=== PATIENT | female | born 1930 | race Caucasian/White ===

== ENCOUNTER 2017-11-28 06:59 | Emergency (ER) | payer MEDICARE, BC ==
[2017-11-28] MEDS: GLUCAGON FOR INJ 1 MG VIAL (J1610) IV (07:15)
[2017-11-28] MEDS: GI COCKTAIL 50ML BTL(HYOSCYAMINE/MAALOX/LIDOCAINE VISCOUS)(1:3:1) PO (07:30)
== END 2017-11-28 08:22 | disposition home or self-care (01) ==
LOC: M ED 06:59
DX: T18.108A Unspecified foreign body in esophagus causing other injury, initial encounter (principal); Y92.9 Unspecified place or not applicable; Y93.9 Activity, unspecified; E11.9 Type 2 diabetes mellitus without complications; Z86.2 Personal history of diseases of the blood and blood-forming organs and certain disorders involving the immune mechanism; Z79.899 Other long term (current) drug therapy; Z88.1 Allergy status to other antibiotic agents; Z88.8 Allergy status to other drugs, medicaments and biological substances
CPT/HCPCS: 93005

== ENCOUNTER → 2020-05-15 | Outpatient (CLI) | payer SELFPAY ==
[~2020-05-15] MED LIST: PROT1TAB2
== END ==
LOC: M LABSMTC 15:37
PROVIDERS: ATTEND Pediatrics
DX: Z11.59 Encounter for screening for other viral diseases (principal)

== ENCOUNTER 2020-10-26 18:31 | Observation (INO) | payer MEDICARE ==
[~2020-10-26] VITALS: Ht 149.9 cm; Wt 55.3 kg
[2020-10-26 20:01] LABS: BASO # 0.1 10^3/uL (0.0-0.2); BASO % 0.4 % (0.0-1.0); EOS # 0.1 10^3/uL (0.0-0.5); EOS % 0.8 % (0.0-3.0); HEMATOCRIT 36.8 % (36.0-47.0); HEMOGLOBIN 11.8 g/dl (12.0-15.5); LYMPH # 1.5 10^3/uL (1.5-5.0); LYMPH % 11.9 % (24.0-44.0); MEAN CORPUSCULAR HEMOGLOBIN 26.8 pg (27.0-33.0); MEAN CORPUSCULAR HGB CONC 32.1 g/dl (32.0-36.5); MEAN CORPUSCULAR VOLUME 83.6 fl (80.0-96.0); MONO # 1.1 10^3/uL (0.0-0.8); MONO % 9.1 % (2.0-8.0); NEUTROPHILS # 9.6 10^3/uL (1.5-8.5); NEUTROPHILS % 77.5 % (36.0-66.0); PLATELET COUNT, AUTOMATED 397 10^3/uL (150-450); WHITE BLOOD COUNT 12.4 10^3/uL (4.0-10.0)
[2020-10-26 20:27] LABS: ALBUMIN 3.6 GM/DL (3.2-5.2); ALT/SGPT 18 U/L (12-78); BILIRUBIN,DIRECT < 0.1 MG/DL (0.0-0.2); BILIRUBIN,TOTAL 0.3 MG/DL (0.2-1.0); BLOOD UREA NITROGEN 17 MG/DL (7-18); CALCIUM LEVEL 9.3 MG/DL (8.8-10.2); CARBON DIOXIDE LEVEL 31 MEQ/L (21-32); CHLORIDE LEVEL 101 MEQ/L (98-107); CREATININE FOR GFR 0.95 MG/DL (0.55-1.30); GLOMERULAR FILTRATION RATE 59.1 (>32); GLUCOSE, FASTING 133 MG/DL (70-100); LIPASE 81 U/L (73-393); POTASSIUM SERUM 3.8 MEQ/L (3.5-5.1); SODIUM LEVEL 137 MEQ/L (136-145); TOTAL PROTEIN 8.1 GM/DL (6.4-8.2)
--- NOTE | 2020-10-26 20:44 | ECGEPIP ---
[facility] - ED Test Date: 2020-10-26 Pat Name: JOSHUA CASTILLO Department: Room: - Gender: Female Residential Real Estate Appraiser: MICHA : 1930 Requested By: SELIN HARVEY Order Number: [id number] Reading MD: Julianne Jones Measurements Intervals [place] Rate: 93 P: 58 NE: 158 QRS: -11 QRSD: 68 T: 33 QT: 378 QTc: 469 Interpretive Statements Normal sinus rhythm similar 11/28/17 Electronically Signed on 10-26-2020 20:44:31 EDT by Julianne Jones
--- NOTE | 2020-10-26 21:28 | REPVR ---
PROCEDURE INFORMATION: Exam: XR Abdomen Exam date and time: 10/26/2020 8:37 PM Age: 89 years old Clinical indication: Abdominal pain; Additional info: Examine gas pattern / adbominal distention TECHNIQUE: Imaging protocol: XR of the abdomen. Views: 2 Views. Upright and supine views. COMPARISON: No relevant prior studies available. FINDINGS: Gastrointestinal tract: Moderate colonic fecal load. Intraperitoneal space: Normal. No free air. Bones/joints: Degenerative changes of the spine and bilateral hip joints. IMPRESSION: Moderate colonic fecal load. Clinical correlation with constipation. Electronically signed by: Daryl Delgado On 10/26/2020 21:27:49 PM
[2020-10-26] MEDS ORDERED: NS 1,000 ML IV SCH (22:55)
[2020-10-26] MEDS ORDERED: GASTROGRAFIN SOLUTION 30ML (Q9963) As Ordered ONE (23:06)
[2020-10-26] MEDS: GASTROGRAFIN SOLUTION 30ML PO SCH ×2 (23:18→23:42)
[2020-10-27] MEDS ORDERED: NS 1,000 ML IV ONE (00:10)
[2020-10-27] MEDS ORDERED: ISOVUE-370 76% 100ML VIAL As Ordered ONE (00:27)
--- NOTE | 2020-10-27 01:27 | REPVR ---
PROCEDURE INFORMATION: Exam: CT Abdomen And Pelvis With Contrast Exam date and time: 10/26/2020 10:53 PM Age: 89 years old Clinical indication: Abdominal pain; Generalized; Additional info: R/O diverticulitis TECHNIQUE: Imaging protocol: Computed tomography of the abdomen and pelvis with contrast. Radiation optimization: All CT scans at this facility use at least one of these dose optimization techniques: automated exposure control; mA and/or kV adjustment per patient size (includes targeted exams where dose is matched to clinical indication); or iterative reconstruction. Contrast material: ISO; Contrast volume: 100 ml; Contrast route: INTRAVENOUS (IV); Other contrast: Oral, ggraphin, 600; COMPARISON: CR Abdomen, Flat-Upright PA CHEST 10/26/2020 8:24 PM FINDINGS: Lungs: There is atelectasis in both lower lobes. The lungs were not fully imaged. Heart: The heart is enlarged. There are extensive mitral annular calcifications. Mediastinal space: There is a large hiatal hernia. Liver: The attenuation of the liver is more than 40 Hounsfield units lower in attenuation compared to the spleen, which is compatible with fatty liver infiltration. No liver lesion. The contour of the liver is smooth. No hepatomegaly. Gallbladder and bile ducts: There has been a cholecystectomy. There is no fluid collection in the gallbladder fossa. No dilation of the bile ducts is noted. No calcified stones are seen in the common bile duct. Pancreas: Normal. No dilation of the main pancreatic duct is noted. Spleen: Normal. No splenomegaly is noted. Adrenal glands: Normal. No adrenal mass is noted. Kidneys and ureters: The kidneys are normal in appearance. No renal lesion is identified. No calculi are seen in the kidneys or ureters. There is no hydronephrosis or hydroureter. There are no wedge-shaped areas of low attenuation in the kidneys to suggest pyelonephritis. There is no renal abscess or perinephric fluid collection. Stomach and bowel: There is thickening of the wall of the gastric antrum. The small bowel is unremarkable. There is severe sigmoid diverticulosis, thickening of the wall of the sigmoid colon, and inflammatory fat stranding around a sigmoid diverticulum in the right side of the pelvis, which are findings compatible with sigmoid diverticulitis. No bowel obstruction or extraluminal extravasation of ingested contrast material is noted. Appendix: The appendix is not identified and may have been removed. No dilated blind ending tubular structure, inflammatory fat stranding, or fluid is noted in the expected location of the appendix. Intraperitoneal space: No free air. No ascites. No abscess. Retroperitoneal space: No fluid collection. No mass. Vasculature: No abdominal aortic aneurysm. There are extensive atherosclerotic calcifications. No occlusion of the celiac artery, superior mesenteric artery, inferior mesenteric artery, renal arteries, or iliac arteries is noted. Lymph nodes: No enlarged lymph nodes. Urinary bladder: There is a small calcification in the anterior wall of the bladder (image 100 of the axial series 201). Reproductive: There has been a hysterectomy. There is a 15 mm nodule along the right side of the vaginal cuff (image 48 of the sagittal series 203 and image 103 of the axial series 201). Bones/joints: There is no fracture or dislocation. No suspicious osteolytic or osteoblastic lesion. There are degenerative changes involving the lumbar spine and a mild levoscoliosis of the lumbar spine. Soft tissues: There is a small fat containing umbilical hernia. IMPRESSION: 1. Sigmoid diverticulitis. 2. Thickening of the wall of the gastric antrum, which may indicate gastritis. 3. Status post hysterectomy, and there is a 15 mm nodule along the right side of the vaginal cuff. 4. Large hiatal hernia. 5. Small fat containing umbilical hernia. 6. Cardiomegaly. Electronically signed by: Bryce Young On 10/27/2020 01:27:07 AM
[2020-10-27] MEDS ORDERED: metroNIDAZOLE 500 MG in IV 1 EA IV ONE (01:40)
[2020-10-27] MEDS ORDERED: MORPHINE 4 MG/ML 1ML VIAL/SYRINGE (J2270) IV ONE (01:40)
[2020-10-27] MEDS ORDERED: CIPROFLOXACIN 400 MG in IV 1 EA IV ONE (01:40)
--- NOTE | 2020-10-27 03:37 | IPNPDOC ---
Text Note Date of Service The patient was seen on 10/27/20. NOTE time of service 356 am is an 89 yr old w diverticulitis who presented w c/o abdominal pain w/o bloody stools likely 2/[address] scan; based on admission criteria on an UpToDate article on diverticulitis she was admitted bc of her age; gastritis is likely due to NSAID use; started PPIs if Hg keeps trending down consider GI consult for EGD rest per 's H&P VS,Fishbone, I+O VS, Fishbone, I+O Laboratory Tests 10/26/20 19:37 Vital Signs Date Time Temp Pulse Resp B/P (MAP) Pulse Ox O2 Delivery O2 Flow Rate FiO2 10/27/20 02:31 90 18 151/77 (101) 98 Room Air 10/27/20 01:46 98.7 I&O- Last 24 Hours up to 6 AM 10/27/20 06:00 Intake Total 1100 ml Balance 1100 ml NOEL SORENSON MD October 27, 2020 03:37
[2020-10-27] MEDS ORDERED: PROT20TA11 PO (03:55)
[2020-10-27] MEDS ORDERED: ONDANSETRON 4MG/2ML VIAL IV ONE (04:25)
[2020-10-27 04:44] LABS: RSV AMPLIFICATION NEGATIVE (NEGATIVE)
[2020-10-27] MEDS ORDERED: MOM 30ML SUSPENSION UDC PO PRN (04:50)
[2020-10-27] MEDS ORDERED: ACETAMINOPHEN TAB 650MG DOSE (2X325MG) PO PRN (04:50)
[2020-10-27] MEDS ORDERED: MAALOX 30 ML SUSP *UDC PO PRN (04:50)
[2020-10-27] MEDS ORDERED: NS 1,000 ML IV SCH (04:55)
--- NOTE | 2020-10-27 05:06 | HPEPDOC ---
[facility] Medical History & Physical Date of Admission October 27, 2020 Date of Service: October 27, 2020 Attending Physician: NOEL SORENSON MD History and Physical CHIEF COMPLAINT: Abdominal pain and distention HISTORY OF PRESENT ILLNESS: Patient is a pleasant 89-year-old female with a history of diverticulitis and lactose intolerance who presented to the ED with abdominal distention and severe cramping abdominal pain 7 out of 10 in intensity, sharp with no aggravating or relieving factors 3 days ago. Patient has not tried any medication for pain and does not believe in taking too many medications. Patient states there couldn't have been anything that instigated this event because she did nothing different than usual. Patient has had no bowel habit changes is fairly regular, goes twice a day, has a well-formed stools with no blood in the stools. No diarrhea constipation, vomiting, fevers, chills, headaches, shortness of breath, weakness, chest pain, cough, dizziness. Patient was found to have normal vitals but a positive urinalysis for infection and a CT abdomen showing sigmoid diverticulitis. So, the patient was kept nothing by mouth and was treated with a bolus of normal saline and IV Rocephin and IV metronidazole and admitted for further recommendations and treatment. PAST MEDICAL HISTORY: 1. Diverticulitis. 2. Lactose intolerance. PAST SURGICAL HISTORY: 1. Hysterectomy 2. Cholecystectomy. 3. Possible appendectomy as per CT. Patient unaware SOCIAL HISTORY: Tobacco use: Never smoker ETOH: Never Illicit drug use: Never FAMILY HISTORY: Father: Diverticulitis Hereditary disease: None ALLERGIES: Please see below. REVIEW OF SYSTEMS: General: Reports: Normal Appetite; Denies: Fatigue, Malaise Constitutional: Denies: Fever, Chills, Sweats, Weakness, Malaise Eyes: Denies: Pain, Vision change ENT: Denies: Head Aches, Sore Throat, Epistaxis Skin: Denies: Rash, Lesions, Breakdown, Nail Changes Pulmonary: Denies: Dyspnea, Cough Cardiovascular: Denies Chest Pain, Denies Palpitations Gastrointestinal: Denies: diarrhea,constipation Genitourinary: Denies: Dysuria, Frequency, Incontinence, Hematuria Hematologic: Denies: Bruising, Bleeding Excessively Endocrine: Denies: Polydipsia, Polyphagia, Polyuria Musculoskeletal: Denies: Neck Pain, Back Pain Neurological: Denies: Weakness, Numbness, Incoordination, Change in Speech Psych: Reports: Mood Normal; Denies: Anxiety, Depression HOME MEDICATIONS: Please see below. PHYSICAL EXAMINATION: GENERAL APPEARANCE: Patient looks alert, cooperative, not in any acute distress. HEENT: Atraumatic, normocephalic, moist mucous membranes, no conjunctival pallor, no scleral icterus, PERRLA, EOMI. CARDIOVASCULAR: S1 and S2 heard, rate and rhythm normal. No murmurs appreciated. LUNGS:. Clear to auscultation bilaterally, no wheezing, rhonchi or crackles heard. ABDOMEN: Nondistended, nontender, no organomegaly, no rashes. EXTREMITIES: No pedal edema, good volume pulses , good capillary refill + NEUROLOGICAL: 5/5 motor strength, sensations intact. PSYCHIATRIC:, Normal mood and affect LABORATORY DATA: See below. IMAGING: CT abdomen and pelvis: shows sigmoid diverticulitis. MICROBIOLOGY: Please see below. ASSESSMENT: Patient is a pleasant 89-year-old female with a history of diverticulitis and lactose intolerance who presented to the ED with abdominal distention and severe cramping abdominal pain 7 out of 10 in intensity, sharp with no aggravating or relieving factors 3 days ago. Patient has not tried any medication for pain and does not believe in taking too many medications. Patient states there couldn't have been anything that instigated this event because she did nothing different than usual. Patient has had no bowel habit changes is fairly regular, goes twice a day, has a well-formed stools with no blood in the stools. No diarrhea constipation, vomiting, fevers, chills, headaches, shortness of breath, weakness, chest pain, cough, dizziness. Patient was found to have normal vitals but a positive urinalysis for infection and a CT abdomen showing sigmoid diverticulitis. So, the patient was kept nothing by mouth and was treated with a bolus of normal saline and IV Rocephin and IV metronidazole and admitted for further recommendations and treatment. . PLAN: 1. Abdominal pain secondary to Sigmoid diverticulitis as per CT versus constipa tion versus pancreatitis versus cystitis : -Patient's CT shows sigmoid diverticulitis. -Patient's abdominal x-ray shows a moderate fecal load. -Patient has abnormal urinalysis. -Blood cultures ordered -Urine cultures ordered -Patient was admitted with continuous monitoring of vitals. -Patient was kept nothing by mouth with every 6 FSBS monitoring. -Patient was given 1 dose of IV Rocephin and IV metronidazole in the ED. -Treatment was continued as IV Zosyn and IV vancomycin for floors as scheduled to treat any abdominal infection. -Surgery needs to be consulted. -A bowel regimen was ordered for the patient to treat constipation. -Appropriate pain control ordered. -Patient's previous colonoscopy was 2 years ago as per the patient done in [place] which showed diverticulosis. -Patient's lipase levels have been ordered. 2. Possible sepsis/SIRS secondary to urinary tract infection or colonic source: -Patient's vitals are stable -patient has leukocytosis of 12.6 -Continuous monitoring of vitals. -CRP is high. -Patient has been started on IV fluids. -Empirically covered with antibiotics. 3.Abnormal CT findings a 15 mm nodule was found on vaginal cuff: -Patient should follow this up outpatient with her PCP or [facility] program coordinator. DVT prophylaxis: Subcutaneous heparin 5000 units every 8 hours. DISPOSITION: Pending improvement. Anticipating 2 hospital days. Vital Signs Vital Signs Date Time Temp Pulse Resp B/P (MAP) Pulse Ox O2 Delivery O2 Flow Rate FiO2 10/27/20 04:01 87 18 165/81 (109) 97 Room Air 10/27/20 01:46 98.7 Laboratory Data Labs 24H Laboratory Tests 2 10/26/20 19:37: Immature Granulocyte % (Auto) 0.3, Neutrophils (%) (Auto) 77.5H, Lymphocytes (%) (Auto) 11.9L, Monocytes (%) (Auto) 9.1H, Eosinophils (%) (Auto) 0.8, Basophils (%) (Auto) 0.4, Neutrophils # (Auto) 9.6H, Lymphocytes # (Auto) 1.5, Monocytes # (Auto) 1.1H, Eosinophils # (Auto) 0.1, Basophils # (Auto) 0.1, Nucleated Red Blood Cells % (auto) 0.0, Urine Color YELLOW, Urine Appearance HAZY, Urine pH 8.0, Urine Specific Hurt 1.004, Urine Protein NEGATIVE, Urine Glucose (UA) NEGATIVE, Urine Ketones NEGATIVE, Urine Blood NEGATIVE, Urine Nitrite NEGATIVE, Urine Bilirubin NEGATIVE, Urine Urobilinogen 0.2, Urine Leukocyte Esterase 3+H, Urine WBC (Auto) 42H, Urine RBC (Auto) 4H, Urine Hyaline Casts (Auto) 0, Urine Bacteria (Auto) 1+H, Urine Squamous Epithelial Cells 1, Urine Sperm (Auto) , Anion Gap 5L, Glomerular Filtration Rate 59.1, Lactic Acid Level 1.0, Calcium Level 9.3, Total Bilirubin 0.3, Direct Bilirubin < 0.1, Aspartate Amino Transf (AST/SGOT) 14, Alanine Aminotransferase (ALT/SGPT) 18, Alkaline Phosphatase 92, C-Reactive Protein, Quantitative 11.20H, Total Protein 8.1, Albumin 3.6, Albumin/Globulin Ratio 0.8L, Lipase 81 10/27/20 03:34: Coronavirus (COVID-19)(PCR) NEGATIVE, Influenza Type A (RT-PCR) NEGATIVE, Influenza Type B (RT-PCR) NEGATIVE, Respiratory Syncytial Virus (PCR) NEGATIVE CBC/BMP Laboratory Tests 10/26/20 19:37 Microbiology Microbiology 10/26/20 Urine Culture, Received Pending Home Medications Scheduled Pantoprazole Sodium (Protonix) 20 Mg Tablet.dr, 20 MG PO DAILY Allergies Coded Allergies: azithromycin (Verified Adverse Reaction, Mild, 10/26/20) NAUSEA diphenhydramine (Verified Adverse Reaction, Mild, 10/26/20) HALLUCINATIONS A-FIB/CHADSVASC A-FIB History Current/History of A-Fib/PAF?: No Current PO Anticoag Therapy: No Age/Risk Factor Scoring CHADSVASC: CHADSVASC Response (Comments) Value Age Risk Factor Age >/= 75 years old 2 Gender Risk Factor Female 1 Hx of CHF No 0 Hx of HTN No 0 Hx of Stroke/TIA/or VTE No 0 Hx of Diabetes No 0 Hx of Vascular Disease No 0 Total 3 Treatment Treatment ordered: NONE Reason Anticoagulant not given: Patient refusal GME ATTESTATION GME ATTESTATION My faculty preceptor for this patient encounter was physically present during the encounter and was fully available. All aspects of the patient interview, examination, medical decision making process, and medical care plan development were reviewed and approved by the faculty preceptor. The faculty preceptor is aware and concurs with the plan as stated in the body of this note and will attest to such by his/her cosignature. ATTENDING NOTE time of service 356 am is an 89 yr old w diverticulitis who presented w c/o abdominal pain w/o bloody stools likely 2/[address] scan; based on admission criteria on an UpToDate article on diverticulitis she was admitted bc of her a ge; gastritis is likely due to NSAID use if Hg keeps trending down consider GI consult for EGD rest per 's H&P Keli Armenta MD October 27, 2020 05:06 NOEL SORENSON MD October 27, 2020 07:28
[2020-10-27 05:40] VITALS: BP 158/69
[2020-10-27] MEDS ORDERED: PIPERACILLIN/TAZOBACTAM SOD 3.375 GM in D5W MINI-BAG PLUS 50 ML IV SCH (06:00)
[2020-10-27] MEDS: HEPARIN SOD (PORCINE) 5000UNITS/ML 1ML VIAL/SYRINGE SC SCH ×3 (06:17→21:58)
[2020-10-27] MEDS ORDERED: GLUCOSE 4GM CHEW TABLET PO PRN (06:50)
[2020-10-27] MEDS ORDERED: DEXTROSE 50% 50 ML SYRINGE IV PRN (06:50)
[2020-10-27] MEDS ORDERED: GLUCAGON INJ 1MG VIAL SC PRN (06:50)
[2020-10-27 06:56] LABS: BASO % 0.3 % (0.0-1.0); EOS # 0.1 10^3/uL (0.0-0.5); EOS % 1.3 % (0.0-3.0); HEMATOCRIT 32.9 % (36.0-47.0); HEMOGLOBIN 10.4 g/dl (12.0-15.5); LYMPH # 1.2 10^3/uL (1.5-5.0); LYMPH % 13.8 % (24.0-44.0); MEAN CORPUSCULAR HEMOGLOBIN 26.3 pg (27.0-33.0); MEAN CORPUSCULAR HGB CONC 31.6 g/dl (32.0-36.5); MEAN CORPUSCULAR VOLUME 83.1 fl (80.0-96.0); MONO # 1.1 10^3/uL (0.0-0.8); MONO % 12.5 % (2.0-8.0); NEUTROPHILS # 6.2 10^3/uL (1.5-8.5); NEUTROPHILS % 71.6 % (36.0-66.0); PLATELET COUNT, AUTOMATED 340 10^3/uL (150-450); RED BLOOD COUNT 3.96 10^6/uL (4.00-5.40); WHITE BLOOD COUNT 8.7 10^3/uL (4.0-10.0)
[2020-10-27 07:06] LABS: INR 0.96
[2020-10-27 07:07] LABS: PARTIAL THROMBOPLASTIN TIME 45.1 SECONDS (24.2-38.5)
[2020-10-27] MEDS ORDERED: PINK BISMUTH SUSP 524MG/30ML ORAL SYRINGE PO PRN (07:10)
[2020-10-27] MEDS ORDERED: CALCIUM CARBONATE 500 MG CHEW U/D PO PRN (07:10)
[2020-10-27 07:15] LABS: ALT/SGPT 16 U/L (12-78); BILIRUBIN,TOTAL 0.4 MG/DL (0.2-1.0); BLOOD UREA NITROGEN 12 MG/DL (7-18); CALCIUM LEVEL 8.5 MG/DL (8.8-10.2); CARBON DIOXIDE LEVEL 27 MEQ/L (21-32); CHLORIDE LEVEL 107 MEQ/L (98-107); CREATININE FOR GFR 0.79 MG/DL (0.55-1.30); GLOMERULAR FILTRATION RATE > 60.0 (>32); GLUCOSE, FASTING 96 MG/DL (70-100); POTASSIUM SERUM 3.7 MEQ/L (3.5-5.1); SODIUM LEVEL 140 MEQ/L (136-145); TOTAL PROTEIN 7.3 GM/DL (6.4-8.2)
[2020-10-27] MEDS ORDERED: VANCOMYCIN HCL 1,000 MG, VIAL MATE ADAPTER 1 EACH in NS 250 ML IV ONE (08:00)
[2020-10-27] MEDS ORDERED: PANTOPRAZOLE 40MG VIAL (C9113 PER 1) IV SCH (09:00)
[2020-10-27] MEDS: metroNIDAZOLE (FLAGYL) 500MG TABLET PO SCH ×4 (09:13→21:57)
--- NOTE | 2020-10-27 13:20 | IPNPDOC ---
Text Note Date of Service The patient was seen on 10/27/20. NOTE Subjective: -No acute events -Abdominal pain and discomfort has improved Objective: GENERAL APPEARANCE: Patient looks alert, cooperative, not in any acute distress. HEENT: Atraumatic, normocephalic, moist mucous membranes, no conjunctival pallor, no scleral icterus, PERRLA, EOMI. CARDIOVASCULAR: S1 and S2 heard, rate and rhythm normal. No murmurs appreciated. LUNGS:. Clear to auscultation bilaterally, no wheezing, rhonchi or crackles heard. ABDOMEN: Nondistended, nontender, no organomegaly, hyperactive sounds EXTREMITIES: No pedal edema, WWP, 2+ DP pulses NEUROLOGICAL: 5/5 motor strength, sensations intact, cranial nerves 2-12 intact. PSYCHIATRIC:, Normal mood and affect LABORATORY DATA: Reviewed IMAGING: CT abdomen and pelvis: shows sigmoid diverticulitis. MICROBIOLOGY: Please see below. ASSESSMENT:89-year-old W with a history of diverticulitis and lactose intolerance who presented to the ED with abdominal distention and severe cramping abdominal pain 7 out of 10 in intensity, sharp with no aggravating or relieving factors for [address] showed sigmoid diverticulitis. PLAN: 1. Abdominal pain secondary to Sigmoid diverticulitis as per CT versus constipation versus pancreatitis versus cystitis : -Patient's CT shows sigmoid diverticulitis. -Patient's abdominal x-ray shows a moderate fecal load. -f/u Blood cultures -f/u Urine cultures -continue PO cipro/flagyl -clears and to advance as tolerated -continue bowel regimen -Patient's previous colonoscopy was 2 years ago as per the patient done in [place] which showed diverticulosis. 2. Possible sepsis/SIRS secondary to urinary tract infection or colonic source: -Patient's vitals are stable -leukocytosis has resolved -Will dc IV fluids once she is tolerating PO -Antibiotics as noted above 3.Abnormal CT findings a 15 mm nodule was found on vaginal cuff: -Patient should follow this up outpatient with her PCP or fringe maker. DVT prophylaxis: Subcutaneous heparin 5000 units every 8 hours. VS,Fishbone, I+O VS, Fishbone, I+O Laboratory Tests 10/26/20 19:37 10/27/20 06:38 10/27/20 12:14 Vital Signs Date Time Temp Pulse Resp B/P (MAP) Pulse Ox O2 Delivery O2 Flow Rate FiO2 10/27/20 05:40 98.4 95 19 158/69 (98) 96 Room Air I&O- Last 24 Hours up to 6 AM 10/27/20 06:00 Intake Total 1340 ml Output Total 140 ml Balance 1200 ml YOLANDA TIJERINA MD October 27, 2020 13:20
[2020-10-27 22:00] VITALS: BP 152/71
[2020-10-28] MEDS: HEPARIN SOD (PORCINE) 5000UNITS/ML 1ML VIAL/SYRINGE SC SCH (05:13)
[2020-10-28 06:00] VITALS: BP 160/80
[2020-10-28] MEDS ORDERED: CIPROFLOXACIN 500MG TABLET PO SCH (06:00)
[2020-10-28] MEDS ORDERED: ONDANSETRON 4 MG TAB PO PRN (06:35)
[2020-10-28] MEDS ORDERED: VANCOMYCIN HCL 750 MG, VIAL MATE ADAPTER 1 EACH in NS 250 ML IV SCH (08:00)
[2020-10-28] MEDS ORDERED: ONDA-83 PO (08:24)
[2020-10-28] MEDS ORDERED: FLAG500T PO (08:24)
[2020-10-28] MEDS ORDERED: CIPR-249 PO (08:24)
[2020-10-28] MEDS ORDERED: PROT20TA11 PO (08:24)
--- NOTE | 2020-10-28 08:31 | DS.PDOC ---
Discharge Summary General Date of Admission October 26, 2020 at 18:32 Date of Discharge 10/28/2020 Attending Physician: YOLANDA TIJERINA MD Discharge Summary PROCEDURES PERFORMED DURING STAY: None ADMITTING DIAGNOSES: Sigmoid diverticulitis DISCHARGE DIAGNOSES: Sigmoid diverticulitis COMPLICATIONS/CHIEF COMPLAINT: Sigmoid Diverticulitis. HISTORY OF PRESENT ILLNESS: 89-year-old W with a history of diverticulitis and lactose intolerance who presented to the ED with abdominal distention and severe cramping abdominal pain 7 out of 10 in intensity, sharp with no aggravating or relieving factors of 3 days duration, without sindhu changes in bowel habits, has a well-formed semi- loose stools with no blood, no constipation, vomiting, fevers, chills, headaches, shortness of breath, weakness, chest pain, cough, dizziness. HOSPITAL COURSE: In the ED, she was hemodynamically stable and on investigations had a positive UA whose culture later showed it to have been a contaminated sample without any report of dysuria, flank pain or any other urinary symptoms. She also had a CT abdomen that showed evidence of sigmoid diverticulitis and thickening of the wall of the gastric antrum, which may indicate gastritis. She was started on IV antibiotics that were eventually de-escalated to PO cipro/flagyl with resolution of her abdominal pain, bloating and feeling of distention. She also started tolerating PO and her diet was slowly reintroduced to a soft diet without reports of nausea, emesis, diarrhea, constipation or pain. I will discharge her with ciprofloxacin 500mg BID and flagyl QID to complete a 10d course for sigmoid diverticulitis. I will also renew her daily protonix for the potential gastritis with a large hiatal hernia. Of note, she did have an incidentally found 15 mm nodule along the right side of the vaginal cuff and I have discussed it with her and recommend that she follows up with her PCP about this finding. She is now being discharged home with close PCP follow up. DISCHARGE MEDICATIONS: Please see below. ALLERGIES: Please see below. PHYSICAL EXAMINATION ON DISCHARGE: VITAL SIGNS: Please see below. GENERAL APPEARANCE: Patient looks alert, cooperative, not in any acute distress. HEENT: Atraumatic, normocephalic, moist mucous membranes, no conjunctival pallor, no scleral icterus, PERRLA, EOMI. CARDIOVASCULAR: S1 and S2 heard, rate and rhythm normal. No murmurs appreciated. LUNGS:. Clear to auscultation bilaterally, no wheezing, rhonchi or crackles heard. ABDOMEN: Nondistended, nontender, no organomegaly, hyperactive sounds EXTREMITIES: No pedal edema, WWP, 2+ DP pulses NEUROLOGICAL: 5/5 motor strength, sensations intact, cranial nerves 2-12 intact. PSYCHIATRIC:, Normal mood and affect LABORATORY DATA: Please see below. IMAGING: CT A/P: Lungs: There is atelectasis in both lower lobes. The lungs were not fully imaged. Heart: The heart is enlarged. There are extensive mitral annular calcifications. Mediastinal space: There is a large hiatal hernia. Liver: The attenuation of the liver is more than 40 Hounsfield units lower in attenuation compared to the spleen, which is compatible with fatty liver infiltration. No liver lesion. The contour of the liver is smooth. No hepatomegaly. Gallbladder and bile ducts: There has been a cholecystectomy. There is no fluid collection in the gallbladder fossa. No dilation of the bile ducts is noted. No calcified stones are seen in the common bile duct. Pancreas: Normal. No dilation of the main pancreatic duct is noted. Spleen: Normal. No splenomegaly is noted. Adrenal glands: Normal. No adrenal mass is noted. Kidneys and ureters: The kidneys are normal in appearance. No renal lesion is identified. No calculi are seen in the kidneys or ureters. There is no hydronephrosis or hydroureter. There are no wedge-shaped areas of low attenuation in the kidneys to suggest pyelonephritis. There is no renal abscess or perinephric fluid collection. Stomach and bowel: There is thickening of the wall of the gastric antrum. The small bowel is unremarkable. There is severe sigmoid diverticulosis, thickening of the wall of the sigmoid colon, and inflammatory fat stranding around a sigmoid diverticulum in the right side of the pelvis, which are findings compatible with sigmoid diverticulitis. No bowel obstruction or extraluminal extravasation of ingested contrast material is noted. Appendix: The appendix is not identified and may have been removed. No dilated blind ending tubular structure, inflammatory fat stranding, or fluid is noted in the expected location of the appendix. Intraperitoneal space: No free air. No ascites. No abscess. Retroperitoneal space: No fluid collection. No mass. Vasculature: No abdominal aortic aneurysm. There are extensive atherosclerotic calcifications. No occlusion of the celiac artery, superior mesenteric artery, inferior mesenteric artery, renal arteries, or iliac arteries is noted. Lymph nodes: No enlarged lymph nodes. Urinary bladder: There is a small calcification in the anterior wall of the bladder (image 100 of the axial series 201). Reproductive: There has been a hysterectomy. There is a 15 mm nodule along the right side of the vaginal cuff (image 48 of the sagittal series 203 and image 103 of the axial series 201). Bones/joints: There is no fracture or dislocation. No suspicious osteolytic or osteoblastic lesion. There are degenerative changes involving the lumbar spine and a mild levoscoliosis of the lumbar spine. Soft tissues: There is a small fat containing umbilical hernia. IMPRESSION: 1. Sigmoid diverticulitis. 2. Thickening of the wall of the gastric antrum, which may indicate gastritis. 3. Status post hysterectomy, and there is a 15 mm nodule along the right side of the vaginal cuff. 4. Large hiatal hernia. 5. Small fat containing umbilical hernia. 6. Cardiomegaly. AXR: Gastrointestinal tract: Moderate colonic fecal load. Intraperitoneal space: Normal. No free air. Bones/joints: Degenerative changes of the spine and bilateral hip joints. IMPRESSION: Moderate colonic fecal load. Clinical correlation with constipation. PROGNOSIS: Good ACTIVITY: As tolerated DIET: as tolerated, slowly advance back to regular as tolerated DISCHARGE PLAN: Home with 5 more days of cipro and close PCP follow up DISPOSITION: Home DISCHARGE INSTRUCTIONS: Home with 5 more days of cipro and close PCP follow up ITEMS TO FOLLOWUP ON ON OUTPATIENT: Diverticulitis resolution PCP follow up of 15 mm nodule along the right side of the vaginal cuff. DISCHARGE CONDITION: Stable TIME SPENT ON DISCHARGE: 36 minutes. Vital Signs/I&Os Vital Signs Date Time Temp Pulse Resp B/P (MAP) Pulse Ox O2 Delivery O2 Flow Rate FiO2 10/28/20 06:00 98.2 96 18 160/80 (106) 96 Room Air I&O- Last 24 Hours up to 6 AM 10/28/20 06:00 Intake Total 1080 ml Output Total 700 ml Balance 380 ml Laboratory Data Labs 24H Laboratory Tests 2 10/27/20 11:25: 10/27/20 11:31: Bedside Glucose (Misc Panel) 111H 10/28/20 05:31: Magnesium Level 1.9 CBC/BMP Laboratory Tests 10/27/20 12:14 10/27/20 18:08 FSBS Laboratory Tests Test 10/27/20 11:31 Range/Units Bedside Glucose (Misc Panel) 111 83-110 MG/DL Microbiology Microbiology 10/27/20 Stool Occult Blood (SHIRLEY) - Final, Complete 10/27/20 Blood Culture - Preliminary, Resulted No growth after 24 hours . All specim... 10/27/20 Blood Culture - Preliminary, Resulted No growth after 24 hours . All specim... 10/26/20 Urine Culture - Final, Complete Discharge Medications Scheduled Ciprofloxacin HCl (Cipro) 500 Mg Tablet, 500 MG PO BID Metronidazole (Flagyl) 500 Mg Tablet, 500 MG PO QID Pantoprazole Sodium (Protonix) 20 Mg Tablet.dr, 20 MG PO DAILY Scheduled PRN Ondansetron HCl (Ondansetron HCl) 4 Mg Tablet, 4 MG PO Q8HP PRN for NAUSEA OR VOMITING Allergies Coded Allergies: azithromycin (Verified Adverse Reaction, Mild, 10/26/20) NAUSEA diphenhydramine (Verified Adverse Reaction, Mild, 10/26/20) HALLUCINATIONS YOLANDA TIJERINA MD October 28, 2020 08:18
[2020-10-28] MEDS ORDERED: PANTOPRAZOLE 20 MG TAB PO SCH (09:00)
[2020-10-28] MEDS: metroNIDAZOLE (FLAGYL) 500MG TABLET PO SCH (09:52)
== END 2020-10-28 11:55 | disposition home or self-care (01) ==
LOC: M ED 18:31 → M ED INP 18:32 → ENRESERV 10-27 05:03 → M MSPAV 10-27 05:40
PROVIDERS: ADMIT Internal Medicine; ATTEND Internal Medicine
DX: K55.20 Angiodysplasia of colon without hemorrhage (principal); E73.9 Lactose intolerance, unspecified; K44.9 Diaphragmatic hernia without obstruction or gangrene; K42.9 Umbilical hernia without obstruction or gangrene; I51.7 Cardiomegaly; Z79.899 Other long term (current) drug therapy; Z88.1 Allergy status to other antibiotic agents; Z88.8 Allergy status to other drugs, medicaments and biological substances
CPT/HCPCS: 36415; 74019; 74177; 80048; 80053; 80076; 80307; 81001; 82270; 83605; 83690; 83735; 85018; 85025; 85610; 85730; 86140; 87040; 87086; 87631; 87641; 93005; 93041; 96361; 96365; 96366; 96372; 96375; 99285; C9113; G0378; J0744; J1644; J2405; J2543; Q9967